=== PATIENT | female | born 1935 | race Caucasian/White ===

== ENCOUNTER 2016-11-21 15:37 | Emergency (ER) | payer MEDICARE, OTHER ==
[~2016-11-21] VITALS: Ht 162.6 cm; Wt 62.0 kg
[~2016-11-21 15:37] MED LIST: AMLODIPINE5 MG PO; AMOXICILLIN500 MG PO; ASPIRIN 8181 MG PO; BACTRIM DS1 TAB PO; BENAZEPRIL10 MG PO; JANUMET XR1 TA1 PO; LIPITOR20 MG PO; LOTRISONE CREAM15 GM EX; MAXZIDE-2537.5 MG/TA PO; TAM75CAP PO; ULTRAM50 M1 PO
[2016-11-21] MEDS ORDERED: VALTREX1 GM PO (16:04)
[2016-11-21 16:25] VITALS: BP 141/68
== END 2016-11-21 16:28 | disposition home or self-care (01) ==
LOC: ED 15:37
DX: B02.9 Zoster without complications (principal)